=== PATIENT | female | born 1950 | race Asian ===

== ENCOUNTER 2017-01-07 12:38 | Outpatient (CLI) | payer OTHER ==
[2017-01-07 13:08] LABS: PLATELET COUNT 315 K/uL (152-353)
[2017-01-07 13:31] LABS: POTASSIUM 4.2 mmol/L (3.6-5.2)
== END 2017-01-07 19:30 | disposition home or self-care (01) ==
LOC: LABW 12:38
PROVIDERS: Family Medicine
DX: I10 Essential (primary) hypertension (principal); F41.8 Other specified anxiety disorders; E03.8 Other specified hypothyroidism; E55.9 Vitamin D deficiency, unspecified; N28.89 Other specified disorders of kidney and ureter
CPT/HCPCS: 36415; 80053; 80061; 81000; 82043; 82306; 82570; 83735; 84439; 84443; 84481; 84550; 85027

== ENCOUNTER 2017-04-15 12:17 | Outpatient (CLI) | payer OTHER ==
[2017-04-15 13:01] LABS: PLATELET COUNT 342 K/uL (152-353)
[2017-04-15 13:15] LABS: POTASSIUM 4.7 mmol/L (3.6-5.2)
== END 2017-04-15 19:02 | disposition home or self-care (01) ==
LOC: LAB 12:17
PROVIDERS: Family Medicine
DX: I10 Essential (primary) hypertension (principal); F41.8 Other specified anxiety disorders; E03.8 Other specified hypothyroidism; N28.89 Other specified disorders of kidney and ureter; R23.2 Flushing; Z83.3 Family history of diabetes mellitus; Z79.899 Other long term (current) drug therapy; Z51.81 Encounter for therapeutic drug level monitoring; E55.9 Vitamin D deficiency, unspecified
CPT/HCPCS: 80053; 80061; 81000; 82306; 82607; 82746; 83036; 83735; 84439; 84443; 84550; 85027

== ENCOUNTER 2017-04-17 09:28 | Outpatient (CLI) | payer OTHER | END 2017-04-17 11:00 | disposition home or self-care (01) | LOC: MAMMO 09:28 | DX: Z12.31 Encounter for screening mammogram for malignant neoplasm of breast (principal) ==

== ENCOUNTER 2017-04-29 11:59 | Outpatient (CLI) | payer OTHER | END 2017-04-29 13:00 | disposition home or self-care (01) | LOC: RESP 11:59 | DX: I10 Essential (primary) hypertension (principal); R73.03 Prediabetes; R63.5 Abnormal weight gain; R00.2 Palpitations | CPT/HCPCS: 93005 ==

== ENCOUNTER 2018-03-18 11:00 | Outpatient (CLI) | payer OTHER | END 2018-03-18 22:18 | disposition home or self-care (01) | LOC: RAD 11:00 | DX: M79.673 Pain in unspecified foot (principal) ==

== ENCOUNTER 2018-04-22 09:34 | Outpatient (CLI) | payer OTHER | END 2018-04-22 21:31 | disposition home or self-care (01) | LOC: LAB 09:34 → MAMMO 09:34 | DX: M10.072 Idiopathic gout, left ankle and foot (principal); Z12.31 Encounter for screening mammogram for malignant neoplasm of breast | CPT/HCPCS: 36415; 84550; 85651 ==

== ENCOUNTER 2019-04-30 14:13 | Outpatient (CLI) | payer OTHER | END 2019-04-30 19:24 | disposition home or self-care (01) | LOC: MAMMO 14:13 | DX: Z12.31 Encounter for screening mammogram for malignant neoplasm of breast (principal) ==

== ENCOUNTER 2019-06-01 13:10 | Outpatient (CLI) | payer OTHER | END 2019-06-01 19:03 | disposition home or self-care (01) | LOC: RAD 13:10 | DX: M25.562 Pain in left knee (principal) ==

== ENCOUNTER 2019-08-17 09:13 | Outpatient (CLI) | payer OTHER | END 2019-08-17 17:00 | disposition home or self-care (01) | LOC: RAD 09:13 | DX: G89.4 Chronic pain syndrome (principal); M54.5 Low back pain; M54.10 Radiculopathy, site unspecified ==

== ENCOUNTER 2019-10-05 09:47 | Outpatient (CLI) | payer OTHER | END 2019-10-05 19:47 | disposition home or self-care (01) | LOC: MRI 09:47 | DX: M54.5 Low back pain (principal) ==

== ENCOUNTER 2020-03-17 15:18 | Outpatient (CLI) | payer OTHER | END 2020-03-17 19:33 | disposition home or self-care (01) | LOC: RAD 15:18 | DX: M25.562 Pain in left knee (principal) ==

== ENCOUNTER 2020-05-08 11:59 | Outpatient (CLI) | payer OTHER | END 2020-05-08 23:34 | disposition home or self-care (01) | LOC: RAD 11:59 | DX: M25.571 Pain in right ankle and joints of right foot (principal); M54.5 Low back pain ==

== ENCOUNTER 2020-05-16 09:17 | Outpatient (CLI) | payer OTHER | END 2020-05-17 00:30 | disposition home or self-care (01) | LOC: MAMMO 09:17 | DX: Z12.31 Encounter for screening mammogram for malignant neoplasm of breast (principal) ==

== ENCOUNTER 2020-05-29 12:00 | Outpatient (CLI) | payer OTHER | END 2020-05-29 22:32 | disposition home or self-care (01) | LOC: RAD 12:00 | DX: R00.2 Palpitations (principal); F41.8 Other specified anxiety disorders; I10 Essential (primary) hypertension | CPT/HCPCS: 93005 ==

== ENCOUNTER 2021-01-12 07:59 | Outpatient (CLI) | payer OTHER ==
[2021-01-12 08:43] LABS: PLATELET COUNT 303 K/uL (152-353)
[2021-01-12 10:31] LABS: POTASSIUM 4.5 mmol/L (3.6-5.2)
== END 2021-01-12 19:51 | disposition home or self-care (01) ==
LOC: LABW 07:59
PROVIDERS: ATTEND Specialist
DX: Z01.810 Encounter for preprocedural cardiovascular examination (principal); R94.39 Abnormal result of other cardiovascular function study
CPT/HCPCS: 36415; 80053; 85027

== ENCOUNTER 2021-03-13 11:49 | Outpatient (CLI) | payer OTHER | END 2021-03-13 19:21 | disposition home or self-care (01) | LOC: RAD 11:49 | PROVIDERS: ATTEND Orthopaedic Surgery | DX: M25.562 Pain in left knee (principal) ==

== ENCOUNTER 2021-06-11 12:55 | Outpatient (CLI) | payer OTHER | END 2021-06-11 19:26 | disposition home or self-care (01) | LOC: MAMMO 12:55 | PROVIDERS: ATTEND Family Medicine | DX: Z12.31 Encounter for screening mammogram for malignant neoplasm of breast (principal) ==

== ENCOUNTER 2021-08-17 12:41 | Outpatient (CLI) | payer OTHER | END 2021-08-17 23:03 | disposition home or self-care (01) | LOC: MRI 12:41 | PROVIDERS: ATTEND Orthopaedic Surgery Orthopaedic Surgery of the Spine | DX: M54.59 Other low back pain (principal) ==

== ENCOUNTER 2022-02-26 10:44 | Outpatient (CLI) | payer OTHER | END 2022-02-26 18:54 | disposition home or self-care (01) | LOC: RAD 10:44 | PROVIDERS: ATTEND Orthopaedic Surgery | DX: M25.562 Pain in left knee (principal) ==

== ENCOUNTER 2022-07-19 10:19 | Outpatient (CLI) | payer OTHER | END 2022-07-19 19:03 | disposition home or self-care (01) | LOC: MAMMO 10:19 | PROVIDERS: ATTEND Family Medicine | DX: Z12.31 Encounter for screening mammogram for malignant neoplasm of breast (principal) ==

== ENCOUNTER 2022-09-24 12:48 | Outpatient (CLI) | payer OTHER | END 2022-09-24 19:39 | disposition home or self-care (01) | LOC: RAD 12:48 | PROVIDERS: ATTEND Family Medicine | DX: Z13.820 Encounter for screening for osteoporosis (principal); N95.8 Other specified menopausal and perimenopausal disorders ==

== ENCOUNTER 2022-10-29 09:01 | Outpatient (CLI) | payer OTHER ==
[~2022-10-29] VITALS: Ht 165.1 cm; Wt 91.6 kg
== END 2022-10-29 19:06 | disposition home or self-care (01) ==
LOC: NM 09:01
PROVIDERS: ATTEND Nurse Practitioner
DX: I25.10 Atherosclerotic heart disease of native coronary artery without angina pectoris (principal); I10 Essential (primary) hypertension; I07.1 Rheumatic tricuspid insufficiency; I47.1 Supraventricular tachycardia; E66.9 Obesity, unspecified
CPT/HCPCS: A9500; J2785

== ENCOUNTER 2023-03-31 08:57 | Outpatient (CLI) | payer OTHER ==
[2023-03-31 09:39] LABS: POTASSIUM 4.1 mmol/L (3.6-5.2)
== END 2023-03-31 19:44 | disposition home or self-care (01) ==
LOC: LABW 08:57
PROVIDERS: ATTEND Nurse Practitioner
DX: E78.2 Mixed hyperlipidemia (principal); I25.10 Atherosclerotic heart disease of native coronary artery without angina pectoris
CPT/HCPCS: 36415; 80048; 80061; 80076

== ENCOUNTER 2023-05-29 09:43 | Outpatient (CLI) | payer OTHER | END 2023-05-29 19:02 | disposition home or self-care (01) | LOC: LABW 09:43 | PROVIDERS: ATTEND Nurse Practitioner | DX: E78.49 Other hyperlipidemia (principal); I10 Essential (primary) hypertension | CPT/HCPCS: 36415; 80061; 80076 ==